=== PATIENT | female | born 1945 | race Caucasian/White ===

== ENCOUNTER 2018-02-13 11:27 | Emergency (ER) | payer OTHER, MEDICARE ==
[~2018-02-13] VITALS: Ht 162.6 cm; Wt 80.7 kg
[2018-02-13 12:13] VITALS: BP 162/75
--- NOTE | 2018-02-13 12:38 | ED UPPER/LOWER EXTREMITY COMPL ---
History of Present Illness General Chief Complaint: Hand or Wrist Injury Stated Complaint: L WRIST PAIN, STATUS POST FALL Source: patient Exam Limitations: no limitations Vital Signs & Intake/Output Vital Signs & Intake/Output Vital Signs Date Time Temp Pulse Resp B/P B/P Pulse O2 O2 Flow FiO2 Mean Ox Delivery Rate 02/13 1213 97.0 94 18 162/75 96 Room Air Room Air Allergies Coded Allergies: NO KNOWN ALLERGIES (05/01/11) Reconcile Medications Amlodipine Besylate 5 MG TABLET 1 TAB PO DAILY HEART (Reported) Atorvastatin Calcium 20 MG TABLET 1 TAB PO DAILY CHOLESTEROL (Reported) Glucosamine HCl/Chondr Ervin A Na (Cidaflex Tablet) 500 MG-400 MG TABLET 1 TAB PO DAILY SUPPLEMENT (Reported) Lansoprazole 30 MG CAPSULE.DR 1 CAP PO DAILY GI (Reported) Melatonin 5 MG TABLET 3 TAB PO QPM SLEEP (Reported) Metformin HCl (Metformin HCl ER) 500 MG TAB.ER.24H 4 TAB PO DAILY DIABETES ( Reported) Metoclopramide HCl (Reglan) 10 MG TABLET 1 TAB PO TID GI (Reported) 30 minutes before meals and bedtime Niacin 50 MG TABLET 1 TAB PO DAILY SUPPLEMENT (Reported) Marydel-3 Fatty Acids/Fish Oil (Fish Oil 1,000 MG Capsule) 340 MG-1,000 MG CAPSULE 2 CAP PO BID SUPPLEMENT (Reported) Valsartan 320 MG TABLET 1 TAB PO DAILY HEART (Reported) Triage Note: PT TO ED "I WAS WALKING MY DOG AND SHE LUNGED AT A CAR AND PULLED ME DOWN", TOOK TYLENOL AND MOBIC AROUND 11AM. XRAY DONE PRIOR TO TRIAGE. Triage Nurses Notes Reviewed? yes Onset: Abrupt Duration: constant Timing: recent history Severity: severe Severity Numbers: 7 HPI: Patient is a 72-year-old female who presents emergency room seen earlier today while walking her dog leash the dog abruptly moved thrusting patient for bracing her fall with her left outstretched hand and nose acute onset of left localized wrist pain. Patient is right arm dominant, no bleeding or skin damage had occurred. Denies any head strike back pain neck pain elbow or shoulder pain. Patient took meloxicam prior to arrival Past History Travel History Traveled to [place] past 21 day No Medical History Any Pertinent Medical History? see below for history Neurological: NONE EENT: NONE Cardiovascular: hypertension, hyperlipidemia, LBBB Respiratory: NONE Gastrointestinal: peptic ulcer disease, PYLORIC STENOSIS Hepatic: NONE Renal: NONE Musculoskeletal: osteoarthritis Psychiatric: NONE Endocrine: PRE-DIABETIC Blood Disorders: anemia, (FROM [facility] 14 YRS AGO) Cancer(s): NONE Surgical History Surgical History: non-contributory Psychosocial History What is your primary language Frisian Tobacco Use: Never used ETOH Use: denies use Illicit Drug Use: denies illicit drug use Family History Hx Contributory? No Review of Systems Review of Systems Constitutional: Reports: no symptoms. EENTM: Reports: no symptoms. Respiratory: Reports: no symptoms. Cardiovascular: Reports: no symptoms. Gastrointestinal/Abdominal: Reports: no symptoms. Genitourinary: Reports: no symptoms. Musculoskeletal: Reports: see HPI, joint pain, joint swelling. Skin: Reports: no symptoms. Neurological/Psychological: Reports: no symptoms. Hematologic/Endocrine: Reports: no symptoms. Immunological: Reports: no symptoms. All Other Systems: Reviewed and Negative Physical Exam Physical Exam General Appearance: no apparent distress, alert, comfortable Head: atraumatic Eyes: Bilateral: normal appearance. Ears, Nose, Throat: hearing grossly normal Neck: normal inspection, no midline tenderness Cardiovascular/Respiratory: no respiratory distress Peripheral Pulses: 2+ radial (L) Neurologic/Tendon: normal sensation, normal motor functions, normal tendon functions, responds to pain, no evidence tendon injury, no pulse deficit Skin: intact, normal color, warm/dry Comments: Left elbow normal inspection nontender Left wrist generalized point tenderness noted mild swelling noted radial pulses +2 Left hand no scaphoid tenderness mild carpal bone tenderness Left upper extremity dermatomes intact Progress Differential Diagnosis: arterial insufficiency, compartment syndrome, contusion, dislocation, DVT, fracture, gout, septic arthritis, sprain, tendon injury Plan of Care: Orders Procedure Date/time Status XRY-WRIST COMPLETE-LEFT 02/13 1134 Active No osseous injury noted after x-rays were resulted patient is neurovascular intact to left upper extremity. X-rays were unremarkable for osseous injury and due to history of present illness and exam findings patient will be treated for concerns of left wrist sprain. Cockup thumb spica Wrist splint was applied to the left hand and wrist pre-and post-neurovascular was intact Diagnostic Imaging: Viewed by Me: Radiology Read. Radiology Impression: no fracture Comments: PATIENT: BEN REYEZ PRESENT AGE: 72 PATIENT ACCOUNT NO: [id number] : 46 LOCATION: [facility] ORDERING PHYSICIAN: Venkatesh WOLFE SERVICE DATE: 02/13/18 EXAM TYPE: RAD - XRY-WRIST COMPLETE-LEFT EXAMINATION: XR WRIST, LEFT CLINICAL INFORMATION: Left wrist pain COMPARISON: None TECHNIQUE: PA, lateral, and oblique views of the left wrist. FINDINGS: Osseous alignment is anatomic. No acute fracture is seen. There is degenerative change at the basal joint of the thumb with joint space narrowing, subchondral sclerosis, and spurring. No significant focal soft tissue abnormality is identified. IMPRESSION: Degenerative change at the basal joint of the thumb. No acute findings identified. DICTATED BY: Christophe Gilbert MD DATE/TIME DICTATED: Departure Departure Disposition: HOME OR SELF CARE Condition: Stable Clinical Impression Primary Impression: Sprain of wrist, left Referrals: Latosha GROVE,Adeola (PCP/Family) Mary GROVE,Yoshi Additional Instructions: As discussed begin icing the area directly 20 minutes every 2 hours, begin the prescription meloxicam for pain and inflammation, if symptoms worsen return to emergency room, begin using the wrist splint provided to the emergency room UNTIL YOU can move her wrist without pain, if symptoms worsen return to emergency ROOM if no better in one week follow up with orthopedic Dr. Hernandez for further evaluation treatment Departure Forms: Customer Survey General Discharge Information
--- NOTE | 2018-02-13 13:01 | RADIOLOGY REPORT ---
EXAMINATION: XR WRIST, LEFT CLINICAL INFORMATION: Left wrist pain COMPARISON: None TECHNIQUE: PA, lateral, and oblique views of the left wrist. FINDINGS: Osseous alignment is anatomic. No acute fracture is seen. There is degenerative change at the basal joint of the thumb with joint space narrowing, subchondral sclerosis, and spurring. No significant focal soft tissue abnormality is identified. IMPRESSION: Degenerative change at the basal joint of the thumb. No acute findings identified.
[2018-02-13] MEDS ORDERED: FISH OIL 1,0001 EACH PO (13:26)
[2018-02-13] MEDS ORDERED: METFORMIN HCL500 M4 PO (13:26)
[2018-02-13] MEDS ORDERED: LANSOPRAZOLE30 M2 PO (13:27)
[2018-02-13] MEDS ORDERED: VALSARTAN320 M1 PO (13:27)
[2018-02-13] MEDS ORDERED: ATORVASTATIN CA20 M1 PO (13:27)
[2018-02-13] MEDS ORDERED: REGLAN10 M1 PO (13:27)
[2018-02-13] MEDS ORDERED: AMLODIPINE BESYL5 M1 PO (13:28)
[2018-02-13] MEDS ORDERED: NIACIN50 MG PO (13:28)
[2018-02-13] MEDS ORDERED: CIDAFLEX TABLE1 EACH PO (13:29)
[2018-02-13] MEDS ORDERED: MELATONIN5 M7 PO (13:29)
[2018-02-13] MEDS ORDERED: MOBIC15 M1 PO (13:50)
== END 2018-02-13 14:02 ==
LOC: ERH 11:27
DX: S63.502A Unspecified sprain of left wrist, initial encounter (principal); W19.XXXA Unspecified fall, initial encounter; Y93.K1 Activity, walking an animal; Y92.9 Unspecified place or not applicable
CPT/HCPCS: 73110-LT